=== PATIENT | male | born 1995 | race Caucasian/White ===

== ENCOUNTER 2018-01-01 14:30 | Emergency (ER) | payer MEDICAID ==
[~2018-01-01] VITALS: Ht 170.2 cm; Wt 67.6 kg
[2018-01-01 14:40] VITALS: BP 143/85
== END 2018-01-01 15:26 | disposition home or self-care (01) ==
LOC: ED 14:30
DX: M54.5 Low back pain (principal)
CPT/HCPCS: J1885

== ENCOUNTER 2019-01-29 11:20 | Emergency (ER) | payer MEDICAID ==
[~2019-01-29] VITALS: Ht 172.7 cm; Wt 68.5 kg
[2019-01-29 11:39] VITALS: Ht 172.7 cm; Wt 68.5 kg
[2019-01-29 13:14] VITALS: BP 127/80
== END 2019-01-29 13:14 | disposition home or self-care (01) ==
LOC: ED 11:20
DX: J20.8 Acute bronchitis due to other specified organisms (principal)